=== PATIENT | female | born 2000 | race African-American/Black ===

== ENCOUNTER 2020-06-21 22:24 | Emergency (ER) | payer MEDICAID ==
[~2020-06-21] VITALS: Ht 157.5 cm; Wt 55.0 kg
[2020-06-21] MEDS ORDERED: ACETAMINOPHEN 325MG TABLET PO STA (23:50)
[2020-06-22] MEDS ORDERED: SODIUM CHLORIDE 0.9% 1,000 ML IV ONE
[2020-06-22 00:56] LABS: BASOPHILS % 0.3 % (0.0-2.0); EOSINOPHILS % 0.4 % (0.0-5.0); HEMATOCRIT. 30.8 % (36.0-48.0); HEMOGLOBIN. 10.1 g/dL (12.0-16.0); LYMPHOCYTES % 12.5 % (20.0-50.0); MEAN CORPUSCULAR HEMOGLOBIN 26.7 pg (28.0-32.0); MEAN CORPUSCULAR VOLUME 81.7 fL (81.0-99.0); MEAN PLATELET VOLUME 10.3 fl (7.4-10.4); MONOCYTES % 6.1 % (2.0-8.0); NEUTROPHILS % 80.7 % (40.0-76.0); PLATELET 199 x1000/uL (130-400); RED BLOOD CELL COUNT 3.77 mill/uL (4.2-5.4); RED CELL DISTRIBUTION WIDTH 13.2 % (11.6-14.6)
[2020-06-22 01:05] LABS: INR 1.1; PROTHROMBIN TIME 11.3 sec (9.6-11.0)
[2020-06-22 01:06] LABS: CHLORIDE 106 mEq/L (98-107)
[2020-06-22] MEDS ORDERED: MORPHINE SULFATE 4 MG/ML CPJ (NOT FOR IM USE) IV ONE (01:15)
[2020-06-22] MEDS ORDERED: ONDANSETRON HCL 4MG/2ML INJ IV ONE (01:15)
[2020-06-22 01:17] LABS: HCG SCREEN NEGATIVE
[2020-06-22] MEDS ORDERED: IOHEXOL-300 100 ML BOTTLE ONE (02:55)
[2020-06-22 03:20] VITALS: BP 119/74
[2020-06-22 03:36] LABS: CLARITY URINE CLOUDY (CLEAR); COLOR URINE YELLOW (YELLOW); KETONES URINE TRACE (NEGATIVE); LEUKOCYTE ESTERASE URINE 2+ (NEGATIVE); NITRITE URINE NEGATIVE (NEGATIVE); OCCULT BLOOD URINE TRACE (NEGATIVE); PH URINE 5.5 (4.5-8.0); PROTEIN URINE TRACE (NEGATIVE); SPECIFIC GRAVITY URINE 1.025 (1.005-1.030); UROBILINOGEN URINE 0.2 E.U./dL (0.2-1.0)
== END 2020-06-22 03:20 | disposition home or self-care (01) ==
LOC: ER 22:24
DX: N83.209 Unspecified ovarian cyst, unspecified side (principal)
CPT/HCPCS: 36415; 74177; 80053; 81003; 81025; 83605; 83690; 84703; 85025; 85610; 87086; 93005; 96361; 96374; 96375; 99285; J2270; J2405; J7030; Q9967

== ENCOUNTER 2021-10-19 15:40 | Emergency (ER) | payer MEDICAID, OTHER ==
[~2021-10-19] VITALS: Ht 157.5 cm; Wt 60.0 kg
[~2021-10-19 15:40] MED LIST: DOXY100C5 MT; IBUP-2028 MT; METR500T MT; NITR-87 MT
[2021-10-19 15:43] VITALS: BP 122/70
[2021-10-19] MEDS ORDERED: FAMOTIDINE 20MG TABLET PO ONE (16:30)
[2021-10-19] MEDS ORDERED: PREDNISONE 20MG TABLET PO ONE (16:30)
[2021-10-19] MEDS ORDERED: DIPHENHYDRAMINE 25MG CAPSULE PO ONE (16:30)
[2021-10-19] MEDS ORDERED: P20 PO (17:46)
[2021-10-19] MEDS ORDERED: DIPH25CA83 PO (17:46)
== END 2021-10-19 17:56 | disposition home or self-care (01) ==
LOC: ER 15:40
DX: T78.40XA Allergy, unspecified, initial encounter (principal); J45.909 Unspecified asthma, uncomplicated; X58.XXXA Exposure to other specified factors, initial encounter
CPT/HCPCS: 99284; J7512; Q0163

== ENCOUNTER 2023-05-31 18:19 | Emergency (ER) | payer MEDICAID ==
[~2023-05-31] VITALS: Ht 165.1 cm; Wt 69.0 kg
[~2023-05-31 18:19] MED LIST changes: +DIPH25CA83 PO; +P20 PO
[2023-05-31 18:24] VITALS: BP 118/70; PULSE 115; RESP 16; TEMP 98.8; O2SAT 100
[2023-05-31] MEDS ORDERED: IBUPROFEN 600MG TABLET PO ONE (20:00)
[2023-05-31 20:02] LABS: BASOPHILS % 0.3 % (0.0-2.0); EOSINOPHILS % 0.9 % (0.0-5.0); HEMATOCRIT. 36.1 % (36.0-48.0); HEMOGLOBIN. 11.8 g/dL (12.0-16.0); LYMPHOCYTES % 12.2 % (20.0-50.0); MEAN CORPUSCULAR HEMOGLOBIN 26.7 pg (28.0-32.0); MEAN CORPUSCULAR HGB CONC 32.8 g/dL (31.0-37.0); MEAN CORPUSCULAR VOLUME 81.4 fL (81.0-99.0); MEAN PLATELET VOLUME 9.3 fl (7.4-10.4); NEUTROPHILS % 81.6 % (40.0-76.0); PLATELET 243 x1000/uL (130-400); RED BLOOD CELL COUNT 4.43 mill/uL (4.2-5.4); RED CELL DISTRIBUTION WIDTH 14.2 % (11.6-14.6)
[2023-05-31 20:09] LABS: CHLORIDE 105 mEq/L (98-107); INDEX HEMOLYSI 1 (1-3); INDEX ICTERIC 1 (1-4); INDEX LIPEMIC 1 (1-3); POTASSIUM 3.6 mEq/L (3.5-5.1); SODIUM 137 mEq/L (136-145)
[2023-05-31 20:19] LABS: ALANINE AMINOTRANSFERASE 24 IU/L (13-61); ALBUMIN 3.6 g/dL (3.4-5.0); ASPARTATE AMINOTRANSFERASE 21 IU/L (15-37); B-HCG QUANTITATIVE < 1 mIU/mL (<3); BILIRUBIN TOTAL 0.6 mg/dL (0.1-1.0); CARBON DIOXIDE 28 mEq/L (21-32); CREATININE 0.7 mg/dL (0.6-1.3); GLUCOSE 108 mg/dL (70-105); PROTEIN TOTAL 8.2 g/dL (6.0-8.3); UREA NITROGEN BLOOD 7 mg/dL (7-21)
[2023-05-31] MEDS ORDERED: KETOROLAC 30MG/ML VIAL IV ONE (20:45)
[2023-05-31] MEDS ORDERED: IBUP-2029 MT (20:47)
[2023-05-31 21:00] LABS: CLARITY URINE CLOUDY (CLEAR); COLOR URINE DARK YELLOW (YELLOW); GLUCOSE URINE NEGATIVE (NEGATIVE); KETONES URINE 1+ (NEGATIVE); LEUKOCYTE ESTERASE URINE 2+ (NEGATIVE); NITRITE URINE NEGATIVE (NEGATIVE); OCCULT BLOOD URINE 3+ (NEGATIVE); PROTEIN URINE 1+ (NEGATIVE); SPECIFIC GRAVITY URINE 1.029 (1.005-1.030)
[2023-05-31 21:27] LABS: WBC URINE TNTC /hpf (0-2)
[2023-05-31 21:28] LABS: BACTERIA URINE TRACE; SQUAMOUS EPITHELIAL CELL URINE 1+ /lpf (RARE/1+)
[2023-05-31] MEDS ORDERED: CEFP100S5 MT (23:40)
== END 2023-06-01 00:24 | disposition home or self-care (01) ==
LOC: ER 18:19
DX: N93.8 Other specified abnormal uterine and vaginal bleeding (principal); N39.0 Urinary tract infection, site not specified; N83.202 Unspecified ovarian cyst, left side; J45.909 Unspecified asthma, uncomplicated; Z79.899 Other long term (current) drug therapy
CPT/HCPCS: 80053; 81003; 84702; 85025; 87086; 36415; 76830; 76856; 96374; 99285; J1885; Z7610

== ENCOUNTER 2023-08-15 11:42 | Emergency (ER) | payer MEDICAID ==
[~2023-08-15] VITALS: Ht 157.5 cm; Wt 66.5 kg
[~2023-08-15 11:42] MED LIST changes: +CEFP100S5 MT; +IBUP-2029 MT
[2023-08-15 11:52] VITALS: BP 111/73; O2SAT 98
[2023-08-15 13:26] LABS: BASOPHILS % 0.2 % (0.0-2.0); EOSINOPHILS % 0.9 % (0.0-5.0); HEMATOCRIT. 25.5 % (36.0-48.0); LYMPHOCYTES % 9.3 % (20.0-50.0); MEAN CORPUSCULAR HEMOGLOBIN 26.2 pg (28.0-32.0); MEAN CORPUSCULAR HGB CONC 31.5 g/dL (31.0-37.0); MEAN CORPUSCULAR VOLUME 83.1 fL (81.0-99.0); MEAN PLATELET VOLUME 8.6 fl (7.4-10.4); NEUTROPHILS % 84.6 % (40.0-76.0); PLATELET 263 x1000/uL (130-400); RED BLOOD CELL COUNT 3.06 mill/uL (4.2-5.4); RED CELL DISTRIBUTION WIDTH 14.4 % (11.6-14.6); WHITE BLOOD COUNT 11.3 x1000/uL (4.5-11.0)
[2023-08-15 13:43] LABS: B-HCG QUANTITATIVE 4 mIU/mL (<3); CALCIUM 8.8 mg/dL (8.7-10.4); CARBON DIOXIDE 28 mEq/L (21-32); CHLORIDE 108 mEq/L (98-107); CREATININE 0.6 mg/dL (0.6-1.0); GLUCOSE 90 mg/dL (70-105); POTASSIUM 3.7 mEq/L (3.5-5.1); SODIUM 142 mEq/L (136-145); UREA NITROGEN BLOOD 7 mg/dL (9-23)
[2023-08-15 14:04] LABS: HCG SCREEN NEGATIVE
[2023-08-15] MEDS ORDERED: IBUP-2029 MT (14:32)
[2023-08-15] MEDS ORDERED: PENI500T MT (14:32)
[2023-08-15 15:14] VITALS: PULSE 108; RESP 14; TEMP 98.2
== END 2023-08-15 15:15 | disposition home or self-care (01) ==
LOC: ER 11:42
DX: N93.9 Abnormal uterine and vaginal bleeding, unspecified (principal); J02.9 Acute pharyngitis, unspecified; J40 Bronchitis, not specified as acute or chronic
CPT/HCPCS: 36415; 76830; 76856; 80048; 84702; 84703; 85025; 86850; 86900; 99284